=== PATIENT | male | born 1995 | race Caucasian/White ===

== ENCOUNTER 2019-04-13 20:06 | Emergency (ER) | payer SELFPAY ==
[~2019-04-13] VITALS: Ht 170.2 cm; Wt 88.6 kg
[2019-04-13] MEDS ORDERED: DEXAMETHASONE 4 MG TABLET PO ONE (21:15)
[2019-04-13] MEDS ORDERED: MAALOX/LIDOCAINE/NYSTATIN SUSP 5 ML ORAL.SYG PO ONE (21:15)
[2019-04-13] MEDS ORDERED: AMOX TR/POT CLAV 875 MG/125 MG TABLET PO ONE (21:15)
[2019-04-13] MEDS ORDERED: IBUPROFEN 800 MG TABLET PO ONE (21:30)
[2019-04-13 23:46] VITALS: BP 120/79
== END 2019-04-14 00:53 | disposition home or self-care (01) ==
LOC: EMS 20:08 → EDSEX 20:08 → EMS 04-14 00:53
DX: J03.90 Acute tonsillitis, unspecified (principal)
CPT/HCPCS: 87430; 99284; J8540

== ENCOUNTER 2019-08-10 22:59 | Emergency (ER) | payer MEDICAID, OTHER ==
[~2019-08-10] VITALS: Ht 170.2 cm; Wt 81.8 kg
[2019-08-11] MEDS ORDERED: LIDOCAINE/PRILOCAINE 2.5% 30 GM CREAM TP ONE (03:45)
[2019-08-11] MEDS ORDERED: KETAMINE HCL 50 MG/ML 10 ML VIAL IVP ONE (04:00)
[2019-08-11] MEDS ORDERED: SODIUM CHLORIDE 0.9% 30 ML ONE (04:15)
[2019-08-11] MEDS ORDERED: SUCCINYLCHOLINE CHLORIDE 20 MG/ML 10 ML VIAL IVP ONE (04:30)
[2019-08-11] MEDS ORDERED: SULFAMETHOX/TRIMETH DS 800-160 MG/TABLET PO ONE (05:15)
[2019-08-11] MEDS ORDERED: CEPHALEXIN MONOHYDRATE 250 MG CAPSULE PO ONE (05:15)
[2019-08-11 05:38] VITALS: BP 128/94
[2019-08-12] MEDS ORDERED: CEPH250 PO (23:01)
[2019-08-12] MEDS ORDERED: BACTDSB PO (23:01)
== END 2019-08-11 07:07 | disposition home or self-care (01) ==
LOC: EMS 23:01
DX: L05.01 Pilonidal cyst with abscess (principal)
CPT/HCPCS: 10080; 87070; 87205; 99152; 99153 ×2; 99285; J3490; X7700

== ENCOUNTER 2019-08-12 22:55 | Emergency (ER) | payer OTHER ==
[~2019-08-12] VITALS: Ht 170.2 cm; Wt 85.0 kg
[2019-08-12] MEDS ORDERED: BACTDSB PO (23:01)
[2019-08-12] MEDS ORDERED: CEPH250 PO (23:01)
[2019-08-12 23:42] VITALS: BP 133/66
== END 2019-08-13 00:09 | disposition home or self-care (01) ==
LOC: EMS 22:55
DX: Z48.00 Encounter for change or removal of nonsurgical wound dressing (principal)